=== PATIENT | male | born 1975 | race Caucasian/White ===

== ENCOUNTER 2020-09-15 19:49 | Emergency (ER) | payer SELFPAY ==
[2020-09-15 19:50] VITALS: BP 121/72; PULSE 64; RESP 18; TEMP 36.9; O2SAT 95; BMI 25.8
[2020-09-15 20:25] VITALS: RESP 16
--- NOTE | 2020-09-15 20:57 | CT_ITS ---
STUDY: CT BRAIN WITHOUT CONTRAST REASON FOR EXAM: Male, 45 years old. Headache after trauma RADIATION DOSAGE (If Supplied By Facility): CTDIvol = ( 44.99 ) mGy, DLP = ( 812.98 ) mGycm TECHNIQUE: Transaxial CT imaging of the brain was performed without administration of intravenous contrast material. Individualized dose optimization techniques were used for this CT. COMPARISON: No relevant priors. FINDINGS: Normal soft tissue structures. Normal calvarium. Normal size ventricles and extra-axial spaces for the patient''s age. Normal white matter tracts of the cerebral hemispheres. Normal basal ganglia and thalami. Normal brainstem. Normal cerebellum. There is no intracranial hemorrhage. There are no findings of an acute ischemic infarction. Normal visualized paranasal sinuses. CT/Brain/Head without Contrast IMPRESSION: Normal unenhanced CT scan of the brain. Electronically Signed: Shaun Dubois MD at 21:52 EDT , Service support ,
--- NOTE | 2020-09-15 20:59 | CT_ITS ---
STUDY: CT CERVICAL SPINE WITHOUT CONTRAST REASON FOR EXAM: Male, 45 years old. Headache and neck pain after trauma RADIATION DOSAGE (If Supplied By Facility): CTDIvol = ( 24.36 ) mGy, DLP = ( 433.33 ) mGycm TECHNIQUE: High resolution transaxial imaging was performed without contrast material. Sagittal and coronal images were reconstructed. Individualized dose optimization techniques were used for this CT. COMPARISON: None FINDINGS: Normal craniovertebral junction. Normal anterior atlantoaxial articulation. Normal odontoid process. There is straightening of the normal cervical lordosis. Normal vertebral bodies and posterior osseous elements. C2-3: Normal endplates. Normal disc height and morphology. Normal central canal and intervertebral neuroforamina. C3-4: Normal endplates. Normal disc height and morphology. Normal central canal and intervertebral neuroforamina. C4-5: Normal endplates. Normal disc height and morphology. Normal central canal and intervertebral neuroforamina. C5-6: Normal endplates. Normal disc height and morphology. Normal central canal and intervertebral neuroforamina. C6-7: Normal endplates. Normal disc height and morphology. Normal central canal and intervertebral neuroforamina. C7-T1: Normal endplates. Normal disc height and morphology. Normal central canal and intervertebral neuroforamina. Normal visualized soft tissue structures. CT/Spine Cervical without Contras IMPRESSION: Normal unenhanced CT examination of the cervical spine. Electronically Signed: Shaun Dubois MD at 21:57 EDT , Service support ,
--- NOTE | 2020-09-15 20:59 | EX.ED.GENINJ ---
HPI History of Present Illness Chief Complaint: Head Injury Narrative Narrative: Patient presenting with headache for about an hour and a half. Patient was working on his [id number] lawnmower deck. He was underneath it. They estimate this to be about 800 pounds. This fell down on his head. He denies LOC. He states he has pain on the left side of his head. He has nausea. He has light sensitivity. Sound sensitivity. Denies medical history. PFSH PFSH Allergy/AdvReac Type Severity Reaction Status Date / Time latex Allergy Rash Verified 09/15/20 19:53 Surgical History History of appendectomy Social History Smoking Status: Current every day smoker tobacco type: cigarettes ROS ROS ED Constitutional Constitutional ED: Denies fever(s) or subjective Eyes Eyes: Reports other Details: Photophobia ENT ENT ED: Denies rhinorrhea or sore throat Cardiovascular Cardiovascular: Denies chest pain or palpitations Respiratory/Chest Respiratory/Chest: Denies cough or dyspnea Gastrointestinal Gastrointestinal: Reports nausea; Denies abdominal pain, diarrhea or vomiting Genitourinary Genitourinary ED: Denies dysuria or hematuria Musculoskeletal Musculoskeletal: Denies arthralgias, myalgias or neck pain Integumentary Denies abscess or rash Neurologic Neurologic: Reports headache(s); Denies paresthesias Psychiatric Psychiatric: Denies anxiety or depression EXAM Physical Exam Const Vital Signs: 09/15/20 19:50 09/15/20 20:25 Temperature 98.4 F Temperature Source Temporal Pulse Rate 64 Respiratory Rate 18 16 Respiratory Pattern Normal Blood Pressure 121/72 H Blood Pressure Mean 88 Pulse Ox 95 Oxygen Delivery Method Room Air Positive well nourished General Appearance ED: NAD HEENT HEENT Narrative: Mild swelling to the left side of the face. No hemotympanum. Eyes PERRL and EOMs intact bilaterally Resp normal respiratory effort and clear to auscultation bilaterally Cardio regular rhythm Rate: regular rate GI normal to inspection, nondistended, normoactive bowel sounds Neuro oriented x3, CN's II-XII intact bilaterally, moves all extremities, no focal motor deficits and no sensory deficits noted Sensorium / Orientation: alert Psych mental status grossly normal and thought process normal Skin Skin Narrative: Swelling to the left side of the face and scalp. MDM MDM MDM Narrative Medical decision making narrative: Patient presenting with head injury. He states the deck of the lawnmower fell on his head. He has extreme pain and photophobia. There is no lacerations on his head. He has no focal neurologic deficits. He has no history of headaches in the past. He does not have any nausea. Patient given migraine cocktail for headache pain which did resolve his pain and he is now comfortable. CT of the brain and cervical spine are negative for acute findings as interpreted by the radiologist. Patient's was given signs and symptoms which warrant return for reevaluation. Acknowledged understanding. Patient discharged in stable condition. Impression: 1. Closed head injury 2. Concussion Radiography Diagnostic Testing: Radiology Impression Brain CT 09/15/20 20:57 IMPRESSION: Normal unenhanced CT scan of the brain. Electronically Signed: Shaun Dubois MD at 21:52 EDT , Service support , Cervical Spine CT 09/15/20 20:59 IMPRESSION: Normal unenhanced CT examination of the cervical spine. Electronically Signed: Shaun Dubois MD at 21:57 EDT , Service support , Discharge Plan Triage Chief Complaint: Head Injury ED Provider: Abdulaziz Milian Dx/Rx/DC Orders Instructions: ED Concussion, ED Head Injury (Adult) Primary Care Provider: Basil Louis Referrals: Basil Louis MD [Primary Care Provider] - Disposition Disposition: Home, Self Care
[2020-09-15] MEDS: DiphenhydrAMINE 50 MG/ML Syringe 25 MG IV (21:12)
[2020-09-15] MEDS: Metoclopramide 10 MG/2 ML Vial IV (21:14)
[2020-09-15 23:38] VITALS: BP 116/69; PULSE 58; RESP 16; O2SAT 94
== END 2020-09-15 23:39 | disposition home or self-care (01) ==
PROVIDERS: Emergency Provider Student in an Organized Health Care Education/Training Program; PCP Family Medicine
DX: S06.0X9A Concussion with loss of consciousness of unspecified duration, initial encounter (principal); X58.XXXA Exposure to other specified factors, initial encounter
CPT/HCPCS: 70450; 72125; 96374; 96375; 99283; A4216

== ENCOUNTER 2021-06-03 08:10 | Emergency (ER) | payer SELFPAY ==
[2021-06-03 08:12] VITALS: BP 113/84; PULSE 75; RESP 16; TEMP 36.2; O2SAT 96; BMI 26.6
--- NOTE | 2021-06-03 09:00 | ED.VIS.FALL ---
HPI HPI - Fall History of Present Illness Chief Complaint: Lower Extremity Injury Informant: patient Narrative Narrative: Patient is a 45-year-old male who denies any past medical history presenting with left great toe pain and right knee pain. Patient states last night he tripped over his dog and landed on the concrete. He immediately had significant pain of his left great toe and then this morning had increased pain of his right knee. States left great toe pain is worse when he tries to move it or walk at all. The right knee pain is only when he tries to bend his knee. He does not have pain with any dorsoplantar flexion or pain when he lifts his leg straight off the bed. The pain seems to be more on the lateral aspect and behind his knee. Patient did not take any medications prior to arrival because I do not take meds. No numbness or tingling. No other complaints at this time. Does not see an orthopedist. Did not hit his head. Not any blood thinners. PFSH PFSH Home Medications ibuprofen 600 mg PO Q6H PRN PRN #20 tab 06/03/21 [Rx Last Taken Unknown] Allergy/AdvReac Type Severity Reaction Status Date / Time latex Allergy Rash Verified 06/03/21 08:11 Surgical History History of appendectomy Social History Smoking Status: Current every day smoker tobacco type: cigarettes ROS ROS ED Constitutional Constitutional ED: Denies chills or fever(s) Eyes Eyes: Denies blurry vision ENT ENT ED: Denies rhinorrhea Cardiovascular Cardiovascular: Denies chest pain Respiratory/Chest Respiratory/Chest: Denies cough or dyspnea Gastrointestinal Gastrointestinal: Denies abdominal pain or vomiting Musculoskeletal Musculoskeletal: Reports other Details: right knee pain, left great toe pain Integumentary Denies Abrasions or rash Neurologic Neurologic: Denies headache(s), paresthesias or weakness Psychiatric Psychiatric: Denies depression Hematologic/Lymphatic Hematologic/Lymphatic: Denies easy bleeding or easy bruising EXAM Physical Exam Const Vital Signs: 06/03/21 08:12 Temperature 97.1 F L Temperature Source Temporal Pulse Rate 75 Respiratory Rate 16 Blood Pressure 113/84 H Blood Pressure Mean 93 Pulse Ox 96 Oxygen Delivery Method Room Air Positive well nourished and well developed General Appearance ED: well developed HEENT Reports normocephalic atraumatic Eyes PERRL and EOMs intact bilaterally Neck full ROM and supple Chest Wall inspection of chest normal Resp normal respiratory effort Cardio regular rate and regular rhythm Cardio Narrative: 2+ bilateral DP and PT pulses Extremity no calf tenderness and no pedal edema Extremity Narrative: Right knee is normal in appearance. No obvious effusion. No pinpoint area of tenderness. Patient points to the lateral posterior knee of where his pain is. He can raise his leg straight off the bed and has normal distal range of motion however patient refuses to flex his knee due to pain. No fibular head tenderness. Left foot?tenderness and edema to the left great toe. Decreased range of motion. Patient also has pain with palpation of the first MTP joint stating that radiates to his great toe. No other deformity or pinpoint tenderness palpation. No injury to the nailbed appreciated. Psych mental status grossly normal Skin Lesions: no lesions Rashes: no rashes MDM MDM MDM Narrative Medical decision making narrative: Patient is evaluated for pain after mechanical fall. Will obtain x-rays. Gave patient 600 mg of ibuprofen for pain/anti-inflammatory control. X-rays do not show any acute process. X-rays interpreted by myself as well as radiology. Patient be treated as sprains to his great toe as well as his right knee. Given a postop shoe, Juan Ramon wrap for his knee and crutches. Counseled on rice therapy and NSAID use. Patient verbalized agreement understanding. Patient is given referral for orthopedics for his knee as well as podiatry for his foot. Counseled that I cannot obtain an MRI from the emergency room for this to further diagnose the exact cause of his symptoms. Radiography Diagnostic Testing: Clinical Impression(s) from Imaging Studies Foot X-Ray 06/03/21 09:27 IMPRESSION: Normal x-ray examination of the foot. Electronically Signed: Brian Love MD at 9:58 EDT , Knee X-Ray 06/03/21 09:27 IMPRESSION: Normal x-ray examination of the knee. Electronically Signed: Brian Love MD at 9:59 EDT , Discharge Plan Triage Chief Complaint: Lower Extremity Injury Other Complaint: Fall ED Provider: Nelly Serrano Dx/Rx/DC Orders Instructions: ED Foot Contusion, ED Foot Sprain, ED Knee Sprain Prescriptions: New ibuprofen 600 mg tablet 600 mg PO Q6H PRN PRN (Reason: fever or pain) Qty: 20 RF: 0 Primary Care Provider: Basil Louis Referrals: Marvel Smith DPM [STAFF PHYSICIAN] - 3-5 Days if not improving Landon Alatorre DO [STAFF PHYSICIAN] - 3-5 Days if not improving Basil Louis MD [Primary Care Provider] - Disposition Disposition: Home, Self Care Discharge Date/Time: 06/03/21 10:37
--- NOTE | 2021-06-03 09:27 | RAD_ITS ---
STUDY: X-RAY - RIGHT KNEE REASON FOR EXAM: Male, 45 years old. Injury/Pain TECHNIQUE: 3 view(s) of the knee. COMPARISON: None. FINDINGS: Normal visualized distal femur. Normal visualized proximal tibia and fibula. Normal proximal tibiofibular articulation. Normal medial femorotibial compartment. Normal lateral femorotibial compartment. Normal patellofemoral articulation. The soft tissue structures are unremarkable. RAD/Knee 1 or 2 Views IMPRESSION: Normal x-ray examination of the knee. Electronically Signed: Brian Love MD at 9:59 EDT ,
--- NOTE | 2021-06-03 09:27 | RAD_ITS ---
STUDY: X-RAY - LEFT FOOT CLINICAL: Male, 45 years old. Injury/Pain of left great toe TECHNIQUE: 3 view(s) of the foot. COMPARISON: None. FINDINGS: Normal talus, calcaneus, and tarsal bones. Normal visualized subtalar, talonavicular, calcaneocuboid, tarsal and tarsometatarsal articulations. Normal metatarsi. Normal metatarsophalangeal joint of the great toe. Normal tibial and fibular sesamoid bones. Normal interphalangeal joint of the great toe. Normal phalanges of the great toe. Normal second through fifth metatarsophalangeal joints. Normal interphalangeal joints and phalanges of the lesser toes. The soft tissue structures are unremarkable. RAD/Foot min 3 Views IMPRESSION: Normal x-ray examination of the foot. Electronically Signed: Brian Love MD at 9:58 EDT ,
[2021-06-03] MEDS: Ibuprofen 600 MG Tablet PO (09:40)
== END 2021-06-03 10:37 | disposition home or self-care (01) ==
LOC: ED 10:21
PROVIDERS: Emergency Provider Emergency Medicine; PCP Family Medicine; Visit Provider Emergency Medicine
DX: S90.32XA Contusion of left foot, initial encounter (principal); S83.91XA Sprain of unspecified site of right knee, initial encounter; S93.602A Unspecified sprain of left foot, initial encounter; F17.210 Nicotine dependence, cigarettes, uncomplicated; W01.0XXA Fall on same level from slipping, tripping and stumbling without subsequent striking against object, initial encounter
CPT/HCPCS: 73560; 73630; 99284

== ENCOUNTER 2022-05-09 15:46 | Emergency (ER) | payer SELFPAY ==
[2022-05-09 15:48] VITALS: BP 125/85; PULSE 68; RESP 14; TEMP 36.1; O2SAT 95; BMI 26.4
--- NOTE | 2022-05-09 16:23 | EDS_ITS ---
HPI History of Present Illness Chief Complaint: Numb/Ting Informant: patient and spouse/S.O. Narrative Narrative: Presenting here with significant other for evaluation left arm paresthesias and tingling forearm down to the fingers for the past week. He is right-hand dominant. Reports discomfort behind his shoulder blade also. Denies neck pain or injuries. Since yesterday intermittent lightheaded dizzy symptoms. No syncopal episodes. No chest pains or shortness of breath. Denies recent illness or cough. Denies any past med history of similar symptoms in the past. He does have a PCP. 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 He states he does not do any strenuous work. family history of mother having a pacemaker age of 60. No family history of sudden heart at a young age. Denies any recent headaches or visual changes. No leg weakness or paresthesias. Does report noting slight foreign car mechanic strength weakness left side compared to the right. Prior similar symptoms: No PFSH PFSH Home Medications ibuprofen 600 mg tablet 600 mg PO Q6H PRN PRN fever or pain #20 tabs 06/03/21 [Rx Last Taken Unknown] Allergy/AdvReac Type Severity Reaction Status Date / Time latex Allergy Rash Verified 05/09/22 15:48 Surgical History History of appendectomy Social History Smoking Status: Current every day smoker tobacco type: cigarettes ROS ROS ED Constitutional Constitutional ED: Denies chills, fever(s) or sweats Eyes Eyes: Denies change in vision ENT ENT ED: Denies dysphagia or sore throat Cardiovascular Cardiovascular: Denies chest pain, leg edema, palpitations or racing heartbeat Respiratory/Chest Respiratory/Chest: Denies cough, dyspnea or dyspnea on exertion Gastrointestinal Gastrointestinal: Denies abdominal pain, diarrhea, nausea or vomiting Genitourinary Genitourinary ED: Denies dysuria, hematuria or urinary frequency Musculoskeletal Musculoskeletal: Denies back pain, extremity pain or neck pain Integumentary Denies rash or wounds Neurologic Neurologic: Reports paresthesias and weakness; Denies headache(s) EXAM Physical Exam Const Vital Signs: 05/09/22 15:48 Temperature 97 F L Temperature Source Temporal Pulse Rate 68 Respiratory Rate 14 Blood Pressure 125/85 H Blood Pressure Mean 98 Pulse Ox 95 Oxygen Delivery Method Room Air Positive well nourished and well developed General Appearance ED: well developed and NAD HEENT Reports moist mucous membranes normocephalic and atraumatic Eyes PERRL, EOMs intact bilaterally and conjunctivae normal General Eye ED: Yes normal appearance of both eyes Neck no lymphadenopathy and supple Neck Narrative: Negative Spurling's bilaterally. General: Negative for tenderness Chest Wall Chest: Negative for tenderness Resp normal respiratory effort and normal air movement Effort and Inspection: symmetric chest movement; Negative for respiratory distress Cardio regular rate, regular rhythm and no murmurs Peripheral Pulses: pulses 2+ throughout GI normal to inspection, nondistended, normoactive bowel sounds and non-tender Palpation: Negative for guarding or rebound tenderness present Back/Spine no CVA tenderness and no thoracic nor lumbar tenderness Extremity Extremity Narrative: Left upper extremity: Negative Tinel's, however positive Phalen's test after over a minute on the left side. There is 4 out of 5 foreign car mechanic strength left compared to the right side. General Extremety ED: Negative for edema or tenderness General Extremity: Negative for edema Neuro oriented x3, CN's II-XII intact bilaterally and no sensory deficits noted Sensorium / Orientation: awake and alert Skin no rashes or lesions noted and no wounds MDM MDM MDM Narrative Medical decision making narrative: Interventions / MDM: Differential diagnosis: Carpal tunnel syndrome, cardiac dysrhythmia Diagnosis considered but do not suspect: ACS, no EKG ischemic changes. Pulmonary embolism, PERC criteria negative. My EKG interpretation: Sinus rate of 61, no ST or T wave changes QTc 402 Imaging independently reviewed and interpreted by myself: N/A External documents reviewed: N/A Test considered but not ordered:N/A ED course: Patient presenting with near syncopal symptoms. EKG normal labs for normal. No focal deficits. More reassured with this. Left arm examination concerning for carpal tunnel syndrome reproduced with a positive Phalen's test. Discussed this with him. He had slight foreign car mechanic strength weakness. However he was not 100% agreed on this diagnosis. He states he does not do repetitive activities. Discussed with him his concerns, he states he has more concerns of cardiac issues. Discussed the normal EKG. No chest pains. He is PERC negative for any concern for pulmonary embolism. He declined a cock-up splint. Offered further work-up with image studies for concerns of any strokes, he declines CT imagings. Discussed further testing with the paresthesias with nerve conduction studies as an outpatient with his PCP. He states he will follow-up with his PCP for reevaluation. Discussed if near syncopal symptoms recurrent he may need a Holter monitor. He understands this. Return precautions. All questions were answered. Re-evaluation: stable Disposition discussed with patient/family/significant other: Patient and significant other Case discussed with consulting clinician: N/A Lab Data Attestation: I reviewed the patient's lab results. Labs: Laboratory Results - last 24 hr 05/09/22 05/09/22 16:20 16:20 WBC 6.9 RBC 5.09 Hgb 16.0 Hct 46.0 MCV 90.4 MCH 31.4 MCHC 34.8 RDW Std Deviation 40.3 RDW Coeff of Nova 12.2 Plt Count 280 MPV 9.1 Immature Gran % (Auto) 0.100 Neut % (Auto) 70.2 H Lymph % (Auto) 21.8 Runnels % (Auto) 5.5 Eos % (Auto) 1.5 Baso % (Auto) 0.9 Absolute Neuts (auto) 4.8 Absolute Lymphs (auto) 1.50 Nucleated RBC % 0 Sodium 140 Potassium 3.6 Chloride 107 Carbon Dioxide 27.0 Anion Gap 6 BUN 14 Creatinine 0.94 Estim Creat Clear Calc 90.50 Est GFR (MDRD) Af Amer 112 Est GFR (MDRD) Non-Af 93 BUN/Creatinine Ratio 15.0 Glucose 152 H Calcium 9.1 Discharge Plan Triage Chief Complaint: Numb/Ting ED Provider: Hector Lizarraga Dx/Rx/DC Orders Clinical Impression: Near syncope, Arm paresthesia, left, Carpal tunnel syndrome of left wrist Instructions: Carpal Tunnel Syndrome, ED Near-Fainting, Uncertain Cause Prescriptions: No Action ibuprofen 600 mg tablet 600 mg PO Q6H PRN PRN (Reason: fever or pain) Qty: 20 0RF Primary Care Provider: Shefali Godfrey Referrals: Basil Louis MD [Non-Staff] - 1 Week Activity Restrictions/Additional Instructions: EKG normal labs are normal. Monitor symptoms follow-up with your doctor. With your paresthesias may need further testing outside of here, clinically concerns for carpal tunnel syndrome. Your doctor can order nerve conduction study and refer to orthopedics as needed. Disposition Disposition: Home, Self Care Discharge Date/Time: 05/09/22 17:44
[2022-05-09 16:50] LABS: Absolute Neutrophil Count 4.8 X10^3/uL (2.0-7.7); Basophil# 0.06 X10^3/uL; Basophil% 0.9 % (0-1); Eosinophils% 1.5 % (0-5); Lymphocyte % 21.8 % (19-41); Mean Corp Hgb Conc 34.8 g/dL (32-36); Mean Corpuscular Hgb 31.4 pg (27.0-32.0); Mean Corpuscular Volume 90.4 fL (80-94); Mean Platelet Vol. 9.1 fl (6.2-12.0); Monocyte# 0.38 X10^3/uL; Monocyte% 5.5 % (0-10); NRBC Flagged by Analyzer 0 % (0-5); Neutrophil # 4.82 X10^3/uL (2.7-7.7); Neutrophil % 70.2 % (47-70); Platelet Count 280 K/mm3 (150-450); RBC Distribution Width CV 12.2 % (11.6-14.6); RBC Distribution Width SD 40.3 fl (35.1-43.9); Red Blood Count 5.09 M/mm3 (4.6-6.2); White Blood Count 6.9 K/mm3 (4.4-11.0)
[2022-05-09 17:09] LABS: Anion Gap 6 (5-15); BUN 14 mg/dL (7-18); Calcium,Total 9.1 mg/dL (8.5-10.1); Chloride 107 mmol/L (98-107); Creatinine, Serum 0.94 mg/dL (0.70-1.30); EST Glomerular Filtration Rate 93 mL/min (>60); Est Glom Filt Rate - Afr Amer 112 mL/min (>60); Glucose 152 mg/dL (74-106); Potassium 3.6 mmol/L (3.5-5.1); Sodium Level 140 mmol/L (136-145)
== END 2022-05-09 17:44 | disposition home or self-care (01) ==
PROVIDERS: Emergency Provider Emergency Medicine; PCP Nurse Practitioner Family; Visit Provider Emergency Medicine
DX: R55 Syncope and collapse (principal); R20.2 Paresthesia of skin; G56.02 Carpal tunnel syndrome, left upper limb; F17.210 Nicotine dependence, cigarettes, uncomplicated
CPT/HCPCS: 80048; 85025; 93005; 99282; A4216